=== PATIENT | female | born 1995 | race Caucasian/White ===

== ENCOUNTER 2022-08-29 16:45 | Emergency (ER) | payer MEDICAID ==
[~2022-08-29] VITALS: Ht 172.7 cm; Wt 104.3 kg
--- NOTE | 2022-08-29 17:45 | NUR ---
"Woke up with raspy throat/congestion/body aches and discomfort in chest"
--- NOTE | 2022-08-29 18:18 | NUR ---
urine , covid swab , influ swab taken
--- NOTE | 2022-08-29 19:37 | NUR ---
Patient discharged to home in stable condition. Written and verbal after care instructions given. Patient verbalizes understanding of instruction.
[2022-08-29 19:38] VITALS: BP 132/87
== END 2022-08-29 19:38 | disposition home or self-care (01) ==
LOC: ER 17:01
DX: B34.9 Viral infection, unspecified (principal); Z20.822 Contact with and (suspected) exposure to COVID-19
CPT/HCPCS: 99285; 71045; 87426; 93005; 87804 ×2; 84703; C9803